=== PATIENT | female | born 1990 | race Caucasian/White ===

== ENCOUNTER 2017-12-04 11:52 | Outpatient (CLI) | payer OTHER ==
--- NOTE | 2017-12-04 12:38 | XRAY Report ---
CHEST TWO VIEWS: 12/04/2017 HISTORY: Cough. FINDINGS: Small area of atelectasis or infiltrate left cardiophrenic angle. Lungs otherwise clear. No pleural fluid. No pneumothorax. Negative bony structures. IMPRESSION: SMALL AREA OF ATELECTASIS OR INFILTRATE LEFT CARDIOPHRENIC ANGLE. OTHERWISE, NEGATIVE. TD: 12/04/2017 12:37
== END 2017-12-04 11:53 | disposition home or self-care (01) ==
LOC: DI 11:52
PROVIDERS: ATTEND Physician Assistant
DX: R91.8 Other nonspecific abnormal finding of lung field (principal)
CPT/HCPCS: 71046

== ENCOUNTER 2020-02-28 08:00 | Outpatient (CLI) | payer OTHER ==
[2020-02-28 20:36] LABS: TRICHOMONAS VAGINALIS DNA NEGATIVE (NEGATIVE)
== END 2020-02-28 08:01 | disposition home or self-care (01) ==
LOC: LAB.R 08:00
PROVIDERS: ATTEND Obstetrics & Gynecology
DX: N93.9 Abnormal uterine and vaginal bleeding, unspecified (principal); Z13.0 Encounter for screening for diseases of the blood and blood-forming organs and certain disorders involving the immune mechanism
CPT/HCPCS: 36415; 85027; 87491; 87591; 87661

== ENCOUNTER 2020-02-28 11:57 | Outpatient (CLI) | payer OTHER ==
[2020-02-28 12:14] LABS: HGB - HEMOGLOBIN 12.9 g/dL (12.0-16.0); MEAN CORPUSCULAR HEMOGLOBIN 31.5 pg (27.0-31.0); MEAN CORPUSCULAR VOLUME 95.6 fL (81.0-99.0); MEAN PLATELET VOLUME 9.4 fL (7.9-10.8); RED BLOOD COUNT 4.09 10^6/uL (4.20-5.40); RED CELL DISTRIBUTION WIDTH 12.4 % (12.0-15.0); WHITE BLOOD COUNT 7.2 x10^3/uL (4.8-10.8)
== END 2020-02-28 11:58 | disposition home or self-care (01) ==
LOC: LAB 11:57
PROVIDERS: ATTEND Obstetrics & Gynecology
DX: N93.9 Abnormal uterine and vaginal bleeding, unspecified (principal); Z13.0 Encounter for screening for diseases of the blood and blood-forming organs and certain disorders involving the immune mechanism
CPT/HCPCS: 36415; 85027

== ENCOUNTER 2020-03-07 18:04 | Outpatient (CLI) | payer OTHER ==
--- NOTE | 2020-03-08 09:22 | Ultrasound Report ---
PROCEDURE: Pelvic w/Transvaginal INDICATIONS: VAGINAL BLEEDING TECHNIQUE: Real-time scanning was performed of the pelvic organs, with image documentation. Additional endovagi nal scanning was necessary due to incomplete visualization of the adnexal and endometrial structures by transabdominal scanning. COMPARISON: None. FINDINGS: Transabdominal scanning: Limited scanning through the kidneys shows an echogenic focus within the in terpolar region of the left kidney measuring 5 x 3 x 3 mm, compatible with a nonobstructing stone. Th ere is no hydronephrosis. A 1.1 cm simple appearing cyst is also seen in the interpolar region of th e left kidney. No pathologic free abdominal or pelvic fluid. Endovaginal scanning: Uterus: Uterus is normal in size at 8.6 cm. The endometrium measures 4 mm in combined thickness. A n intrauterine device is noted in expected position within the endometrial canal. Ovaries: The ovaries are normal in size and contain multiple follicles, which are not significantly enlarged and are considered physiologic. IMPRESSION: Intrauterine device is present. No acute abnormality is identified in the uterus or ovaries. Nonobstructing 5 mm calculus in the interpolar region of the left kidney. A 1.1 cm simple appearing c yst is also seen in the left kidney. Reviewed by: Ronnie Love MD on 03/08/2020 9:21 AM PDT Approved by: Ronnie Love MD on 03/08/2020 9:21 AM PDT Station ID: [id number]
== END 2020-03-07 18:05 | disposition home or self-care (01) ==
LOC: DI 18:04
PROVIDERS: ATTEND Obstetrics & Gynecology
DX: N20.0 Calculus of kidney (principal); N28.1 Cyst of kidney, acquired; Z97.5 Presence of (intrauterine) contraceptive device
CPT/HCPCS: 76830; 76856

== ENCOUNTER 2021-06-08 09:25 | Emergency (ER) | payer OTHER ==
[2021-06-08] MEDS ORDERED: DEXAMETHASONE 10 MG/ML VIAL PO STA (09:50)
[2021-06-08] MEDS ORDERED: KETOROLAC 60 MG/2 ML VIAL IM STA (09:50)
[2021-06-08] MEDS ORDERED: CHERRY SYRUP 10 ML UDC PO ONE (09:50)
--- NOTE | 2021-06-08 10:13 | ED Physician Documentation ---
PD HPI BACK PAIN - Stated complaint Stated Complaint: BACK/SCIATIC PX - Chief complaint Chief Complaint: Back Pain - History obtained from History obtained from: Patient - History of Present Illness Timing - onset: How many days ago (5) Timing - duration: Days (5) Timing - details: Abrupt onset, Still present Location: Lower, Right Quality: Pain, Spasm, Sharp, Similar to prior episodes Associated symptoms: Incontinent of urine (X one yesterday). No: Fever, Weakness, Numbness, Unable to urinate, Hematuria, Incontinent of stool Improves with: Rest, Position Worsened by: Movement Contributing factors: Lifting, Twisting Similar symptoms before: Diagnosis (sciatica/DJD/scoliosis) Recently seen: Other (urgent care) - Additional information Additional information: 31-year-old female with history of sciatica DJD scoliosis and arthritis in her back has developed pain radiating down her left leg with a burning sensation and not as much pain in her back as usual. She did have one episode of urinary incontinence she believes was related to excessive pain and a full bladder. She denies any perineal numbness. She was seen in the urgent care clinic and given a steroid injection and tordal which helped. She has not had luck with the muscle relaxant and has not been able to sleep. She has not had pain this bad previously. She had some left over narcotic that she took with relief several days ago. Review of Systems Constitutional: denies: Fever Eyes: denies: Decreased vision Ears: denies: Ear pain Nose: denies: Congestion Throat: denies: Oral lesions / sores, Sore throat Respiratory: denies: Cough GI: denies: Vomiting PD PAST MEDICAL HISTORY - Present Medications Home Medications: Ambulatory Orders Medication Instructions Recorded Confirmed HYDROcod/ACETAM 5/325 [Norwood 5/325] 1 - 2 tablet PO Q6H PRN #14 tablet 06/08/21 - Allergies Allergies/Adverse Reactions: Allergies Allergy/AdvReac Type Severity Reaction Status Date / Time amoxicillin Allergy Hives Verified 06/08/21 09:42 iodine Allergy Itching Verified 06/08/21 09:42 sulfamethoxazole Allergy Itching Verified 06/08/21 09:42 [From Bactrim] trimethoprim [From Bactrim] Allergy Itching Verified 06/08/21 09:42 PD ED PE NORMAL - Vitals Vital signs reviewed: Yes (tachy ) - General General: Alert and oriented X 3, Well developed/nourished, Other (laying in the position with the left hip up. ) - HEENT HEENT: Atraumatic, PERRL, EOMI - Respiratory Respiratory: No respiratory distress - Back Back: No CVA TTP, No spinal TTP, Other (tenderness in the lower back radiates into the sciatic notch) - Derm Derm: Normal color, Warm and dry, No rash - Extremities Extremities: No deformity, No edema - Neuro Neuro: Alert and oriented X 3, services manager 2-12 intact, No motor deficit, No sensory deficit, Normal speech Eye Opening: Spontaneous Motor: Obeys Commands Verbal: Oriented GCS Score: 15 - Psych Psych: Normal mood, Normal affect Results - Vitals Vitals: Vital Signs - 24 hr 06/08/21 06/08/21 09:37 10:45 Temperature 36.6 C 37.2 C Heart Rate 129 H 73 Respiratory 24 Rate Blood Pressure 112/77 100/52 L O2 Saturation 97 Oxygen O2 Source Room air Procedures - IVC sono (time) 1000 Bedside IVC sono: IVC measures (cm) (1.89), Euvolemia PD MEDICAL DECISION MAKING - ED course Complexity details: reviewed results, re-evaluated patient, considered differential, d/w patient ED course: 31-year-old female with acute sciatica to the left side appears quite uncomfortable. She did have an episode of urinary incontinence and I have discussed with the patient the nature of cauda equina and reasons to seek care at a facility capable of doing MRI. The patient is treated in the emergency department with dexamethasone and Toradol with improvement and she is prescribed Norwood in addition to the Flexeril she already has. She has had success with this previously. Departure - Departure Disposition: 01 Home, Self Care Clinical Impression: Sciatica Qualifiers: Laterality: left Qualified Code(s): M54.32 - Sciatica, left side Instructions: ED Sciatica Follow-Up: Katy Sahni ARNP [Primary Care Provider] - Prescriptions: HYDROcod/ACETAM 5/325 [Norwood 5/325] 1 - 2 tablet PO Q6H PRN #14 tablet PRN Reason: Pain Discharge Date/Time: 06/08/21 10:47
[2021-06-08 10:47] VITALS: BP 100/52
== END 2021-06-08 10:47 | disposition home or self-care (01) ==
LOC: ED 09:25
DX: M54.42 Lumbago with sciatica, left side (principal); R32 Unspecified urinary incontinence
CPT/HCPCS: 96372; 99283; 99284; A9270

== ENCOUNTER 2021-07-26 14:26 | Outpatient (CLI) | payer OTHER ==
--- NOTE | 2021-07-26 16:16 | XRAY Report ---
PROCEDURE: Lumbar Spine w/Flex/Ext INDICATIONS: S/P discectomy, visit for wound check TECHNIQUE: 4 views of the lumbar spine acquired. COMPARISON: None. FINDINGS: Bones: 5 [id number] vertebrae are present. The vertebral body heights are maintained. Moderate disc height loss at L5-S1 with sclerosis of the endplates and facet arthrosis. The sacroiliac joints are patent. Soft tissues: Overlying bowel gas pattern is normal. No suspicious soft tissue calcifications. An intrauterine device is seen. Flexion/extension: No abnormal subluxation with flexion or extension. IMPRESSION: 1. No acute osseous abnormality of the lumbar spine. Reviewed by: Ubaldo Ahn MD on 07/26/2021 4:15 PM PST Approved by: Ubaldo Ahn MD on 07/26/2021 4:15 PM PST Station ID: [id number]
== END 2021-07-26 14:27 | disposition home or self-care (01) ==
LOC: DI 14:26
PROVIDERS: ATTEND Neurological Surgery
DX: Z51.89 Encounter for other specified aftercare (principal); Z98.890 Other specified postprocedural states